=== PATIENT | male | born 1995 | race Caucasian/White ===

== ENCOUNTER 2022-03-20 21:11 | Observation (INO) | payer BC ==
[2022-03-20] MEDS ORDERED: Ondansetron 4 MG/2 ML SDV IVPUSH ONE (22:11)
[2022-03-20] MEDS ORDERED: Sodium Chloride 0.9% 1,000 ML IV ONE ×2 (22:11→22:43)
[2022-03-20 22:38] LABS: ESTIMATED GFR 23 mL/min (>60)
[2022-03-20] MEDS ORDERED: Insulin Regular, Human 100 Units/ML 3 ML Vial IV ONE (22:44)
[2022-03-20] MEDS ORDERED: Albuterol 0.083% 2.5 MG/3 ML Neb Soln NEB ONE (22:44)
[2022-03-20] MEDS ORDERED: Calcium Gluconate 10% 1 GM/10 ML SDV IVPUSH ONE (22:44)
[2022-03-20] MEDS ORDERED: 50% Dextrose in Water 50 ML Syringe IVPUSH STA (22:44)
[2022-03-20] MEDS ORDERED: Furosemide 40 MG/4 ML VIAL IVPUSH ONE (23:10)
[2022-03-21] MEDS: Sodium Chloride 0.9% 1,000 ML IV SCH ×3 (00:56→09:38)
[2022-03-21] MEDS ORDERED: Ondansetron 4 MG/2 ML SDV IVPUSH PRN (02:46)
[2022-03-21 08:02] LABS: HEMOGLOBIN A1C 5.1 %
== END 2022-03-21 13:37 | disposition home or self-care (01) ==
LOC: JD.ED 21:11 → JD.ICU 03-21 02:00
PROVIDERS: ADMIT Internal Medicine; ATTEND Internal Medicine
DX: T79.6XXA Traumatic ischemia of muscle, initial encounter (principal); D72.829 Elevated white blood cell count, unspecified; E86.0 Dehydration; E87.5 Hyperkalemia; N17.9 Acute kidney failure, unspecified; J40 Bronchitis, not specified as acute or chronic; I21.9 Acute myocardial infarction, unspecified; Z20.822 Contact with and (suspected) exposure to COVID-19; Z79.83 Long term (current) use of bisphosphonates; Z86.16 Personal history of COVID-19; Z98.890 Other specified postprocedural states
CPT/HCPCS: 36415; 71045; 80048; 80053; 82550; 82947; 83036; 83735; 85025; 87635; 93005; 94640; 96361; 96374; 96375; 99285; J0610; J1815; J1940; J2405; J7030; 99235; G0378; U0002